=== PATIENT | male | born 1965 | race Caucasian/White ===

== ENCOUNTER → 2019-10-14 | Outpatient (CLI) | payer BC ==
[2015-10-04 12:00] VITALS: BP 112/72
--- NOTE | 2019-10-15 11:48 | RAD ---
MR#: [id number] Date of Study: 10/14/2019 Ordering Physician: PAN MERCHANT Referring Physician: BRIGITTE MENDEZ Tech: RT Josué (R) (N) APPROVED REPORT Test Type: Exercise Stress Nurse/Tech: Jenniffer Jenkins RN Test Indications: Angina Cardiac History: No known cardiac, former smoker Medications: See Electronic Medical Record Medical History: See Electronic Medical Record Resting ECG: SR Resting Heart Rate: 84 bpm Resting Blood Pressure: 113/75mmHg Pretest Chest Pain: No chest pain Nurse/Tech Notes S1,S2 and lungs diminished in the bases. Consent: The procedure was explained to the patient in lay terms. Informed consent was witnessed. Nura eout was entered into [facility]. History and Stress Test performed by RT Helen (R) (N) Stress Symptoms No chest pain or symptoms. POST EXERCISE Reason for Termination: Reached target heart rate, Fatigue Target HR: Yes Max HR: 144 bpm 101% of Maximum Predicted HR: 142 bpm Exercise duration: 9:13 min:sec, 3 Stage Exercise capacity: 10METs Max Blood Pressure: 166/99mmHg Blood Pressure response to exercise: Normal blood pressure response during stress. Heart Rate response to exercise: WNL Chest Pain: No. Arrhythmia: No. ST Change: No. INTERPRETATION Stress EKG Conclusion: Baseline EKG showed sinus rhythm. No ischemic changes at peak stress. No arr hythmias. Imaging Protocol IMAGE PROTOCOL: Rest Tc-99m/stress Tc-99m 1 day Rest: Stress: Viability: Radiopharm.Tc99m HfmjtaeydJa40e Sestamibi [id number] 31mCi Duration 12min. 12min. Img Date 10/14/2019 10/14/2019 Inj-Img [id number]. 60min. Rest Admin Site:IV - Left AntecubitalAdministrator:RT Bre (R)(N) Stress Admin Site: IV - Left AntecubitalAdministrator: RT Josué (R)(N) STRESS DATA End Diast. Vol.127.0mlAv. Heart Rate80.0bpm End Syst. Vol.49.0mlCO Index BSA0.0L/min Myocardial Wsdh662.0gEject. Vcgzhaij99.0% Stress Rates Pk. Fill Rate2.72EDV/secLVtime Pk. Fill 122.39msec Pk. Empty Rate4.23ESV/secLVtime Pk. Zwena003.59msec 1/3 Pk. Fill1.54EDV/sec Stress Scores Regional WT1.00Summed WT2.00 Regional WM0.00Summed WM1.00 Study quality was good. Left Ventricular size was Normal at Rest and Stress. Lung uptake was . Left Ventricular ejection fraction is 61%. LV Perf. Quant 17 Seg. SSS0.00 17 Seg. SRS0.00 17 Seg. SDS0.00 Stress Defect Extent (% LAD)0.00Rest Defect Extent (% LAD)0.00Rev. Defect Extent (% LAD)0.00 Stress Defect Extent (% LCX) 0.00Rest Defect Extent (% LCX)0.00Rev. Defect Extent (% LCX)0.00 Stress Defect Extent (% RCA)0.00Rest Defect Extent (% RCA)0.00Rev. Defect Extent (% RCA)0.00 Stress Defect Extent (% MACK)0.00Rest Defect Extent (% MACK)0.00Rev. Defect Extent (% MACK)0.00 Conclusion 1. Treadmill exercise cardioisotope stress test did not show any evidence of ischemia or infarct. 2. Normal left ventricular systolic function with ejection fraction calculated at 61%. 3. Patient had good activity tolerance. Low risk for cardiac events. Signed by : James Flynn, Electronically Approved : 10/15/2019 11:48:23
== END | disposition home or self-care (01) ==
LOC: NM 10:01
PROVIDERS: ATTEND Family Medicine
DX: I20.9 Angina pectoris, unspecified (principal)
CPT/HCPCS: 78452; 93017; A9500

== ENCOUNTER → 2020-03-05 | Outpatient (CLI) | payer BC ==
[2015-10-04 12:00] VITALS: BP 112/72
--- NOTE | 2020-03-05 16:30 | KCIC ---
EXAM: PA, oblique and lateral views left wrist DATE: 03/05/2020 12:00 AM INDICATION: Reason: LEFT WRIST INJURY/RULE OUT FX / Spl. Instructions: Recent pulling injury with pain across posterior carpals. / History: COMPARISON: No Prior FINDINGS/ IMPRESSION: 1. There is moderate soft tissue swelling about the left wrist with subtle lucency through the distal radius suspicious for nondisplaced fracture with neutral radial tilt. Associated distal radial cortical buckling at the palmar aspect with bowing of the pronator fat pad. 2. No definite ulnar fracture is seen. Electronically signed by: Danielito Waggoner MD (03/05/2020 4:27 PM) [id number]
== END ==
LOC: KCIC 14:53
PROVIDERS: ATTEND Family Medicine
DX: S69.92XD Unspecified injury of left wrist, hand and finger(s), subsequent encounter (principal); X58.XXXD Exposure to other specified factors, subsequent encounter
CPT/HCPCS: 73110